=== PATIENT | male | born 1935 | race Caucasian/White ===

== ENCOUNTER 2017-02-19 16:42 | Inpatient (IN) | payer OTHER ==
[2017-02-19] VITALS (21 sets, daily range): BP systolic 98–264; BP diastolic 56–121
[~2017-02-19] VITALS: Ht 188 cm; Wt 124.6 kg
--- NOTE | ~2017-02-19 | HC ---
[facility] [place] [address] CONSULTATION Name: ART AVENDANO Room #: 241-P [facility] IN M.R.#: [id number] Admission: 02/19/17 Attend Phys: Juanjo Khan MD Discharge: 02/21/17 Date of : 33 Report #: [id number] THIS REPORT FOR: //name// CC: Juanoj Whitlock DATE OF SERVICE: 02/20/2017 REASON FOR CONSULTATION: Chronic kidney disease with acute worsening. HISTORY OF PRESENT ILLNESS: This is an 81-year-old male with a prior history of severe atherosclerotic cardiovascular disease. He is reported to have had a prior catheterization a number of years ago showing severe 3-vessel disease. The option at that time was for medical management. He had an out of hospital cardiac arrest while at home. He was resuscitated, intubated, admitted through the emergency room and is now in the ICU on hypothermia protocol. He has received multiple liters of IV fluids. He is on the vent with an FiO2 of 0.50. He is oxygenating well. He has been on some Levophed. The blood pressure is now up. He has had a bump in his troponin. He has been fully cooled. From a renal standpoint, the patient has a prior history of chronic kidney disease stage III. He has been followed in our office over the past couple of years by Dr. Barajas. He runs a baseline creatinine level in the 1.6 range. He has had very mild proteinuria. His renal parameters have been fairly stable over the past couple of years. Reviewing his hospital records, he has had 1.3 liters of urine since he came in. He has a Garner catheter in place. Urine is not bloody. He has had a bottle of total about 3.6 liters in. PAST MEDICAL HISTORY: Atherosclerotic coronary artery disease, hypertension, type 2 diabetes. He has had some hyperlipidemia. He has past history of some atrial flutter. He also has some dementia. He has hyperlipidemia, is on therapy for that. MEDICATIONS: On admission include amiodarone 200 mg daily, atorvastatin 20 mg daily, finasteride 5 mg daily, furosemide 40 mg daily, isosorbide mononitrate 30 mg daily, Lantus daily, NovoLog daily, although doses are unknown, levothyroxine 0.1 mg daily, metoprolol 25 mg b.i.d., Uroxatral 10 mg daily, Eliquis 5 mg b.i.d. and Namenda 14 mg daily. ALLERGIES: No known medical allergies. FAMILY HISTORY: Noncontributory in this 81-year-old male. SOCIAL HISTORY: The patient is and lives in [place], [place]. He is retired. [address] [place] [address] CONSULTATION Name: ART AVENDANO Room #: 241-P [facility] IN M.R.#: [id number] Admission: 02/19/17 Attend Phys: Juanjo Khan MD Discharge: 02/21/17 Date of : 34 Report #: [id number] REVIEW OF SYSTEMS: Unavailable at this time per reports from the emergency room and the admitting physician's aide. He had been up and about and quite active during the day yesterday, walking with a walker and apparently did little bit more exertion and normal. Not much else is available at this time. PHYSICAL EXAMINATION: GENERAL: Elderly appearing male seen in the Intensive Care Unit. VITAL SIGNS: Again, he is on hypothermia protocol with temperature of 33 degrees centigrade. Blood pressure is 160/88, heart rate is 56 in sinus, oxygen saturation 98%. HEENT: Shows pupils that are 3 mm and reactive. Sclerae are nonicteric. He is orally intubated. NECK: Supple. No JVD. CHEST: Shows somewhat coarse breath sounds bilaterally, but is symmetrical. HEART: Has a regular bradycardia. ABDOMEN: Has diminished bowel sounds. Abdomen is neither distended nor tender. I cannot palpate organomegaly or masses. EXTREMITIES: Show very cool extremities as one would expect with some mild associated cyanosis. He has absent pedal pulses. No peripheral edema. He is draining a small amount of urine into his Garner catheter. LABORATORY DATA: Most recent sodium 142, potassium 3.2, chloride 108, bicarbonate 21, BUN 35, creatinine 2.0, glucose 174, calcium 7.3, phosphorus 3.5, magnesium 1.8. Troponin 2.84. White count 4.7, hemoglobin 12.5, hematocrit 37.3, platelets 104,000. Differential on the white count, 78 neutrophils, 15 bands, 4 lymphs, 3 monos. Urinalysis, specific gravity 1.020, pH 5.0 with a negative dipstick. Blood gas most recently, pH 7.30, pCO2 of 32, pO2 of 113, lactate 2.59. I reviewed his chest x-ray which shows some oral intubation. Mild vascular congestion. ASSESSMENT: 1. Post-cardiac arrest. The patient is in the Intensive Care Unit on hypothermia protocol. Hemodynamically he is doing well. Blood pressure is actually on the side. We will be weaning the Levophed down. Volume status is fairly good and we will keep him on some maintenance IV fluids. He will continue on the hypothermia protocol. 2. Chronic kidney disease stage III with mild acute worsening. He has actually had good urine output. Baseline creatinine 1.6. It is up to 2.0 which would be about the expected range based upon his hemodynamic changes of out of an hospital arrest. We will follow closely on that. 3. Respiratory failure on the vent. Oxygenating adequately. 4. Atherosclerotic coronary artery disease, multivessel with previous decision not to do intervention. 5. Hypokalemia mild, replace IV. [facility] [address] [place] [address] CONSULTATION Name: ART AVENDANO Room #: 241-P [facility] IN ..#: [id number] Admission: 02/19/17 Attend Phys: Juanjo Khan MD Discharge: 02/21/17 Date of : 34 Report #: [id number] 6. Type 2 diabetes mellitus, sliding scale at this point. 7. History of dementia, although apparently is fairly functional and extensively ambulatory yesterday. PLAN: 1. Continue hypothermia protocol. 2. At this point, I will continue him on some half normal saline as maintenance IV fluids. He had been borderline hypernatremic, so we will keep him on the hypotonic fluids. Replace his potassium: 3. Follow urine output. 4. Follow up on his frequent lab draws. 5. Obviously decisions will need to be made on how he responds to his hypothermia protocol. <ELECTRONICALLY SIGNED> By: Braxton Connor MD 02/21/17 0749 0844 35 Braxton Connor MD /nt
--- NOTE | ~2017-02-19 | EKG ---
[address] [place] [address] ELECTROCARDIOGRAM REPORT Name: ART AVENDANO Room #: 241-P [facility] IN M.R.#: [id number] Admission: 02/19/17 Attend Phys: Juanjo Khan MD Discharge: 02/21/17 Date of : 34 Report #: [id number] THIS REPORT FOR: //name// [facility] ED Test Date: 2017-02-19 Test Time: 16:42:07 Pat Name: ART ACKERMANOLPH Department: Room: [facility] Gender: M Etl Bi Developer: RANJIT : 1935 Requested By: Armida Jane Order Number: [id number] MD: Sj Huffman Measurements Intervals [place] Rate: 50 P: WI: QRS: -90 QRSD: 182 T: 73 QT: 463 QTc: 423 Interpretive Statements Atrial fibrillation Right bundle branch block Abnormal T, consider ischemia, lateral leads No previous ECG available for comparison Electronically Signed On 02-20-2017 20:05:08 CDT by Sj Huffman [email or web address] <ELECTRONICALLY SIGNED> By: Sj Huffman MD 02/20/172004 41 41 Sj Huffman MD /KARIE
--- NOTE | ~2017-02-19 | EEG ---
[facility] [place] [address] ELECTROENCEPHALOGRAM Name: ART AVENDANO Ronel Room #: 241-P [facility] IN M.R.#: [id number] Admission: 02/19/17 Attend Phys: Juanjo Khan MD Discharge: 02/21/17 Date of : 34 Report #: [id number] THIS REPORT FOR: //name// CC: Juanjo Whitlock DATE OF SERVICE: 02/21/2017 This patient is being evaluated for jerking moment and she is post code. EEG was done by placing the electrodes by standard 10-20 system of electrode placement. Both referential and sequential montages were used for recording. Background activity is disorganized and poorly formed. It does go up to about 6-7 Hz, but most of the time stays lower than that. A lot of EKG artifact and muscle artifact is present and therefore, it is difficult to interpret this EEG and difficult to separate that artifact from spike and slow wave activity. However, spike and slow wave activity appeared to be present, which is separate from this artifact. Photic stimulation is unremarkable. There does not appear to be any specific focus for the spike and slow wave activity when it is present. IMPRESSION: This is a severely abnormal EEG because it does appear to be showing epileptiform activity, which does not have a specific focus and appeared to be present sporadically and diffusely. EEG is also slow which would be consistent with encephalopathy, but well defined cortical activity is present. Thank you very much for this referral. <ELECTRONICALLY SIGNED> By: Eren Coronado MD 02/25/17 1020 1719 1730 Eren Coronado MD /nt
--- NOTE | ~2017-02-19 | DEA ---
[facility] [place] [address] SUMMARY Name: ART AVENDANO Room #: 241-P [facility] IN M.R.#: [id number] Admission: 02/19/17 Attend Phys: Juanjo Khan MD Discharge: 02/21/17 Date of : 34 Report #: [id number] THIS REPORT FOR: //name// CC: Sj Khan Primary Care Physician Chinmay Marlow MD DATE OF SERVICE: 02/21/2017 DATE OF : 02/21/2017. BRIEF HISTORY OF PRESENT ILLNESS: This patient is an 81-year-old male brought in by EMS with a cardiac arrest. He was at home and went into collapse. He received ACLS protocol by the EMS. He was down for at least 30 minutes per report, brought into the emergency room. Then they started continued CPR, epinephrine again at least for 10-15 minutes in the ER. Basically, the patient was down at least more than 30-40 minutes and started on the pressors and further workup. The patient was admitted to the hospitalist service in the ICU. During this, they started the hypothermia protocol. The patient has a known history of coronary artery disease. Cardiology saw the patient. Pulmonary, cardiology and renal all have been on board. The patient has a known history of coronary artery disease, 3-vessel disease. He has opted not to go for CABG in the past. Basically, per cardiology, he has a poor prognosis because of a known history of 3-vessel disease and we did star on hypothermia, then after 24 hours protocol, started rewarming. The patient started having seizures. 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 Overall, the prognosis was very poor. All the consultants were there when seeing the patient and family by the bedside. I did have a long discussion with the family also and the family finally decided to basically go with comfort care and withdraw the care. Later on, I got a call. The patient was basically completely on comfort care now. Date of is 02/21/2017, as documented in the chart. Please see all the chart notes for further details. <ELECTRONICALLY SIGNED> By: Juanjo Khan MD 03/03/17 0924 1004 1027 Juanjo Khan MD /nt
--- NOTE | ~2017-02-19 | EKG ---
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
--- NOTE | ~2017-02-19 | EKG ---
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
--- NOTE | ~2017-02-19 | 2DMMODE ---
[place] [address] [facility] [place] [address] 2 D/M-MODE ECHOCARDIOGRAM Name: ART AVENDANO Room #: 241-P [facility] IN ..#: [id number] Admission: 02/19/17 Attend Phys: Erendira Muniz Discharge: 02/21/17 Date of : 34 Date of Service: 02/28/17 0850 Report #: [id number] THIS REPORT FOR: //name// ADDENDUM APPROVED REPORT Study performed: 02/19/2017 18:15:48 EXAM: Comprehensive 2D, Doppler, and color-flow Echocardiogram Patient Location: ER STAT Other Information Study Quality: Adequate Indications S^P Code. Echocardiogram was done STAT in the emergency room. Left Ventricle The left ventricle is normal size. Regional wall motion is not well visualized but grossly normal. Mild concentric left ventricular hypertrophy. The left ventricular systolic function is normal. The left ventricular ejection fraction is within the normal range. LVEF is 60-65%. Diastolic function was not assessed. Right Ventricle The right ventricle is normal size. The right ventricular systolic function is normal. Atria The left atrium size is normal. The right atrium size is normal. Aortic Valve Aortic valve is calcified. No Doppler Mitral Valve Mitral annular calcification No Doppler Tricuspid Valve Incompletely imaged There is no tricuspid valve regurgitation noted. Pulmonic Valve Pulmonic valve is not well visualized. [facility] [address] [place] [address] 2 D/M-MODE ECHOCARDIOGRAM Name: ART AVENDANO Room #: 241-P [facility] IN M.R.#: [id number] Admission: 02/19/17 Attend Phys: Erendira Muniz Discharge: 02/21/17 Date of : 34 Date of Service: 02/28/17 0850 Report #: [id number] Great Vessels IVC is not well visualized. Pericardium There is no pericardial effusion. <Conclusion> Very limited study. Almost uninterpretable The left ventricular systolic function is grossly normal. The left ventricular ejection fraction is probably within the normal range. Regional wall motion is not well visualized but grossly normal. Aortic valve is calcified. No Doppler Mitral annular calcification. No Doppler. Insufficiency probably absent There is no pericardial effusion. <ELECTRONICALLY SIGNED> By: Iggy Rodriguez MD, FACC 02/28/1750 9 Iggy Rodriguez MD, FACC /INF
--- NOTE | ~2017-02-19 | HC ---
[facility] [address] CONSULTATION Name: ART AVENDANO Room #: 241-P [facility] IN M.R.#: [id number] Admission: 02/19/17 Attend Phys: Juanjo Khan MD Discharge: 02/21/17 Date of : 34 Report #: [id number] THIS REPORT FOR: //name// CC: Juanjo Whitlock PRIMARY CARE PHYSICIAN: Unknown. REFERRAL PHYSICIAN: Dr. Khan. REASON FOR REFERRAL: Cardiac arrest. HISTORY OF PRESENT ILLNESS: The patient is an 81-year-old white male who was brought to the emergency room following an out of hospital cardiac arrest. A pulmonary and critical care consultation was requested. According to family, the patient was walking the stairs at home, he collapsed, fell. He sustained a laceration to back of scalp. 911 was called. When the EMS arrived, the patient was found to be in asystole. He was intubated on the field. He was shock for ventricular fibrillation. He was given epinephrine times 4. The patient was seen by cardiology in the emergency room. It is felt the patient did not have an acute myocardial infarction. Plans were to proceed with hypothermia protocol. Briefly ultrasound of the extremities were negative for DVT. Creatinine was 2. Echocardiogram was performed. Preliminary EF was said to be about 60%. Currently, he is sedated on undergoing hypothermia protocol. PAST MEDICAL HISTORY: Notable for coronary artery disease. He has been followed by Dr. Lammoglia. Cardiac catheterization was performed in the past showing 3-vessel disease. He has hypercholesterolemia, hypothyroidism, diabetes mellitus. PAST MEDICAL HISTORY: Otherwise incomplete. We will obtain old records. PAST SURGICAL HISTORY: Unknown. ALLERGIES: None to medications. MEDICATIONS: From home include amiodarone, Lipitor, Proscar, Lasix, isosorbide, Lantus, Synthroid, Lopressor, NovoLog, Eliquis, Namenda. FAMILY HISTORY: Noncontributory. [facility] [address] [place] [address] CONSULTATION Name: ART AVENDANO Room #: 241-P [facility] IN .R.#: [id number] Admission: 02/19/17 Attend Phys: Juanjo Khan MD Discharge: 02/21/17 Date of : 34 Report #: [id number] SOCIAL HISTORY: Unknown. REVIEW OF SYSTEMS: Deferred as the patient is intubated. PHYSICAL EXAMINATION: GENERAL: The patient is sedated. VITAL SIGNS: He is currently undergoing hypothermia protocol. Pulse is 54, respiratory rate is 20, blood pressure is 130/76 mmHg, saturation 100%. HEENT: Normocephalic, atraumatic. NECK: Supple, without any lymphadenopathy or thyromegaly. CHEST: Breath sounds are moderate, mild coarse breath sounds bilaterally. CARDIOVASCULAR: Normal S1, S2. There is no murmur or gallop. There is no JVD. There is no carotid bruit. Pulses are 2+/4+ bilaterally. ABDOMEN: No masses felt. Nontender. Abdomen is wrapped with the hypothermia protocol pads. GENITOURINARY AND RECTAL: Deferred. EXTREMITIES: Cool to touch. No cyanosis or clubbing. LABORATORY DATA: Portable chest x-ray shows vascular congestion, endotracheal tube is in good position, nasogastric tube is placed. Central line is noted. He has an appropriate position at the right atrium. CT head was unremarkable for any acute ischemic changes. A posterior occipital laceration is noted. C-spine is notable for extensive facet degeneration, otherwise no acute traumatic changes. Venous Doppler ultrasound was negative for DVT. Sodium 142, potassium 3.2, chloride 108, CO2 of 21, BUN is 35, creatinine is 2.0. Liver function profile is mildly elevated. Troponin is 3.0. Initial arterial blood gas revealed pH 7.19, pCO2 of 31, pO2 of 474. IMPRESSION: 1. Out of hospital cardiac arrest in this 81-year-old white male with history of coronary artery disease. Primary dysrhythmia is suspected. 2. Acute hypoxic respiratory failure due to above. 3. Acid base disorder. The patient has primary metabolic acidosis due to cardiac arrest. 4. Encephalopathy, possible hypoxic brain injury. We will need to reassess over the next 72 hours. 5. Renal insufficiency. Given his multi-comorbid conditions, I suspect that the patient may have chronic kidney disease though cannot rule out acute kidney injury due to cardiac arrest. 6. Metabolic acidosis due to above due to cardiac arrest. 7. Coronary artery disease with cardiac arrest now with elevated troponin as per cardiology. 8. Presumed history of atrial fibrillation, on amiodarone and anticoagulation. 9. Apparent history of dementia. RECOMMENDATIONS: We will continue mechanical ventilation for now. Complete [facility] [address] [place] [address] CONSULTATION Name: ART AVENDANO Room #: 241-P [facility] IN ..#: [id number] Admission: 02/19/17 Attend Phys: Juanjo Khan MD Discharge: 02/21/17 Date of : 34 Report #: [id number] hours of hypothermia protocol. Wean O2 for saturation 90%. DVT and GI prophylaxis will be addressed. Thank you for this consultation. <ELECTRONICALLY SIGNED> By: Javier Marlow MD 02/23/17 1351 1119 2056 Javier Marlow MD /nt
--- NOTE | ~2017-02-19 | HC ---
[facility] [place] [address] CONSULTATION Name: ART AVENDANO Room #: 241-P [facility] IN M.R.#: [id number] Admission: 02/19/17 Attend Phys: Juanjo Khan MD Discharge: 02/21/17 Date of : 33 Report #: [id number] THIS REPORT FOR: //name// CC: Juanjo Whitlock DATE OF SERVICE: 02/19/2017 HISTORY OF PRESENT ILLNESS: As you know, he is a gentleman who follows with Dr. Bloom. He has a known history of coronary artery disease with evidence of 3-vessel disease back in 2007. Catheterization was performed by Dr. Richardson at that time. At that time, there was also an echocardiogram that showed normal EF. Apparently at that time, a bypass surgery was recommended, but he decided against proceeding with this. He also has a history of atrial flutter, on amiodarone; hypertension; diabetes; chronic renal insufficiency and dementia. Apparently, the patient was in his usual state of health. His last visit with Dr. Bloom was in November, and at that time it sounds like he may have been in atrial flutter, and they decided to continue with a rate control strategy. Today, he was at a festival and was ambulating with his walker as usual. This was more activity for him than usual, but he did well. Apparently he got home, and the said that he went to go up in the garage, and a little time later, she heard a thud and found him slumped over the banister near their staircase. EMS was called and per their report, actually initially there was asystole followed by ventricular fibrillation, which was cardioverted, then he had PEA and then eventually pulse returned. REVIEW OF SYSTEMS: Unable to obtain. PAST MEDICAL HISTORY: As above. SOCIAL HISTORY: He does not smoke. FAMILY HISTORY: Noncontributory. MEDICATIONS: He is on: 1. Amiodarone 200 mg a day. 2. Atorvastatin 20 mg a day. 3. Finasteride 5 mg a day. 4. Lasix 40 mg a day. 5. Imdur 30 a day. 6. Lantus. 7. Synthroid. 8. Metoprolol 25 mg twice a day. 9. NovoLog. 10. Uroxatral. [address] [address] CONSULTATION Name: ART AVENDANO Room #: 241-P [facility] IN ..#: [id number] Admission: 02/19/17 Attend Phys: Juanjo Khan MD Discharge: 02/21/17 Date of : 33 Report #: [id number] 11. Eliquis 5 mg twice a day. 12. Namenda. ALLERGIES: None. PHYSICAL EXAMINATION: VITAL SIGNS: Have been reviewed. GENERAL: He is intubated and sedated. NECK: Supple. HEART: Irregularly irregular. There are no murmurs. LUNGS: Clear anteriorly. ABDOMEN: Soft, nontender and nondistended. EXTREMITIES: There are some chronic venous changes with some trace edema. NEUROLOGIC: Cranial nerves could not be assessed. LABORATORY DATA: A pH is 7.1, paCO2 of 31, pO2 of 474. Lactate 6.9. White count 9.1, hemoglobin 13.3 and platelets 146. Sodium 146, potassium 4.4, BUN 28 and creatinine 2.0. Troponin is 0.06. EKG shows atrial flutter, rate of 79 beats per minute with a widened QRS complex, right bundle branch block, left anterior fascicular block and some lateral ST changes. Chest x-ray shows some generalized cardiomegaly and some mild vascular congestion. CT of the head is pending. ASSESSMENT AND PLAN: In summary, the patient is a patient with known severe 3-vessel coronary artery disease as well as atrial flutter who had a witnessed cardiac arrest at home. It sounds like initially he was asystolic. He should be ruled out for the typical causes of asystole. I do not think that this is a primary arrhythmia abnormality. We discussed taking him to the general production laborer; however, he is currently on Eliquis. He has known severe 3-vessel disease and severe peripheral vascular disease. In 2007, they had difficulties even performing the cardiac catheterization. He is also currently on full dose anticoagulation. His EKG does not show any ST elevation [place] or any significant ischemia that he should really be taken for an emergency catheterization. As such, we will recommend supportive care with supporting his blood pressure and heart rate either with dopamine or additional vasopressor agents such as Levophed. We will continue to follow. <ELECTRONICALLY SIGNED> By: Sj Huffman MD 02/28/17 [id number] Sj Huffman MD /nt
[~2017-02-19 16:42] MED LIST: CALCIUM CARBON500 M3; ISOSORBIDE MONO30 M1 PO; LASIX 40 MG TAB40 M2 PO; LEVOTHYROXINE 0.1 MG PO; LIPITOR 10 MG10 M1; LIPITOR 20 MG T20 M1 PO; LOPRESSOR25 PO; MULTIVITAMINS1 EAC7 PO; NAMENDA 10 MG T10 MG PO; NAMENDA 5 MG TAB5 M1; OMEGA-31000 M1; PACERONE 200 M200 M1 PO; PACERONE100 MG; TOPROL XL25 MG; UROXATRAL PO
[2017-02-19 17:00] LABS: HEMATOCRIT 41.5 % (42.0-52.0); HEMOGLOBIN 13.3 gm/dL (14.0-18.0); MCH 31.5 pg (26.0-34.0); MCHC 32.1 g/dL (28.0-37.0); MCV 98.1 fL (80.0-100.0); PLATELET COUNT 146 thou/uL (150-400); RBC 4.23 mil/uL (4.50-6.00); RDW 16.5 % (10.5-14.5); WBC 9.1 thou/uL (4.0-11.0)
[2017-02-19 17:01] LABS: MANUAL DIFF YES
[2017-02-19 17:12] LABS: CALCIUM 8.8 mg/dL (8.5-10.1); POTASSIUM 4.4 mmol/L (3.5-5.1)
[2017-02-19 17:22] LABS: ABSOLUTE NEUTROPHILS 2.1 thou/uL (1.4-8.2); METAMYELOCYTES 1 %; TOTAL CELL COUNT 100; TROPONIN-I 0.06 ng/mL (<0.04-0.07)
[2017-02-19 17:23] LABS: ANISOCYTOSIS 1+
[2017-02-19 17:24] LABS: ABG SAMPLE TYPE ARTERIAL; BE(vivo) -15.1 mmol/L (-2 to +3); HCO3 11.9 mmol/L (22.0-26.0); O2(CT) 20.1 mL/dL (15.0-23.0); O2Hb 98.7 % (92.0-98.0); PCO2 31.7 mmHg (35.0-45.0); PO2 474.4 mmHg (80.0-100.0); sO2 99.8 % (92.0-98.0); tCO2 12.8 mmol/L (24.0-30.0)
[2017-02-19] MEDS ORDERED: PACERONE 200 M200 M1 PO (17:24)
[2017-02-19 17:25] LABS: LACTATE 6.99 mmol/L (0.5-2.0); STICK SITE R.BRACHIAL; TIDAL VOLUME 500 ml; pH 7.191 (7.360-7.450)
[2017-02-19] MEDS ORDERED: PROSCAR 5MG TABL5 MG PO (17:25)
[2017-02-19] MEDS ORDERED: FUROSEMIDE 40 M40 MG PO (17:25)
[2017-02-19] MEDS ORDERED: LIPITOR 20 MG T20 M1 PO (17:25)
[2017-02-19] MEDS ORDERED: ISOSORBIDE MONO30 M1 PO (17:25)
[2017-02-19] MEDS ORDERED: LANTUS100 UNIT/M SUBQ (17:26)
[2017-02-19] MEDS ORDERED: LEVOTHYROXINE 0.1 MG PO (17:27)
[2017-02-19] MEDS ORDERED: LOPRESSOR25 PO (17:27)
[2017-02-19] MEDS ORDERED: NOVOLOG100 UNIT/1 SUBQ (17:28)
[2017-02-19] MEDS ORDERED: UROXATRAL PO (17:28)
[2017-02-19] MEDS ORDERED: NAMENDA XR14 MG PO (17:29)
[2017-02-19] MEDS ORDERED: ELIQUIS5 MG PO (17:29)
[2017-02-19 17:59] LABS: URINE BILIRUBIN NEGATIVE (Negative); URINE BLOOD NEGATIVE (Negative); URINE COLOR YELLOW; URINE GLUCOSE-RANDOM* NEGATIVE (Negative); URINE KETONES NEGATIVE (Negative); URINE NITRITE NEGATIVE (Negative); URINE PROTEIN (DIPSTICK) NEGATIVE (Negative); URINE UROBILINOGEN 0.2 E.U./dl (0.2-1.0)
[2017-02-19 18:10] LABS: APTT 25.9 Seconds (24.5-32.8); INR 1.1; PROTIME 11.7 Seconds (9.3-11.4)
[2017-02-19 21:13] LABS: ABG SAMPLE TYPE ARTERIAL; BE(vivo) -7.3 mmol/L (-2 to +3); HCO3 18.4 mmol/L (22.0-26.0); O2(CT) 19.4 mL/dL (15.0-23.0); O2Hb 98.2 % (92.0-98.0); PCO2 37.8 mmHg (35.0-45.0); PO2 236.2 mmHg (80.0-100.0); STICK SITE R.BRACHIAL; pH 7.305 (7.360-7.450); sO2 99.5 % (92.0-98.0); tCO2 19.6 mmol/L (24.0-30.0)
[2017-02-19 21:14] LABS: TIDAL VOLUME 500 ml
[2017-02-19 22:56] LABS: FIBRINOGEN 325.2 mg/dL (210-360)
[2017-02-19 23:37] LABS: HEMATOCRIT 39.2 % (42.0-52.0); HEMOGLOBIN 12.8 gm/dL (14.0-18.0); MCH 30.7 pg (26.0-34.0); MCHC 32.8 g/dL (28.0-37.0); MCV 93.6 fL (80.0-100.0); PLATELET COUNT 157 thou/uL (150-400); RBC 4.18 mil/uL (4.50-6.00); RDW 15.8 % (10.5-14.5)
[2017-02-19 23:44] LABS: APTT 28.9 Seconds (24.5-32.8); INR 1.1; MANUAL DIFF YES; PROTIME 11.9 Seconds (9.3-11.4)
[2017-02-20] VITALS (98 sets, daily range): BP systolic 84–180; BP diastolic 49–110
[2017-02-20 00:04] LABS: ABSOLUTE NEUTROPHILS 12.3 thou/uL (1.4-8.2); CALCIUM 7.5 mg/dL (8.5-10.1); CK-MB MASS 54.2 ng/mL (<0.5-3.6); CREATININE 2.2 mg/dL (0.6-1.3); MAGNESIUM 1.8 mg/dL (1.8-2.4); POTASSIUM 4.4 mmol/L (3.5-5.1); TOTAL CELL COUNT 100
[2017-02-20 00:06] LABS: TROPONIN-I 3.01 ng/mL (<0.04-0.07)
[2017-02-20 02:44] LABS: ABG SAMPLE TYPE ARTERIAL; BE(vivo) -9.9 mmol/L (-2 to +3); HCO3 18.5 mmol/L (22.0-26.0); LACTATE 1.87 mmol/L (0.5-2.0); O2(CT) 17.6 mL/dL (15.0-23.0); O2Hb 88.7 % (92.0-98.0); PCO2 50.7 mmHg (35.0-45.0); PO2 66.5 mmHg (80.0-100.0); tCO2 20.1 mmol/L (24.0-30.0)
[2017-02-20 02:45] LABS: STICK SITE R.RADIAL; pH 7.181 (7.360-7.450)
[2017-02-20 02:46] LABS: TIDAL VOLUME 500 ml
[2017-02-20 04:31] LABS: HEMATOCRIT 37.3 % (42.0-52.0); HEMOGLOBIN 12.5 gm/dL (14.0-18.0); MCH 31.3 pg (26.0-34.0); MCHC 33.6 g/dL (28.0-37.0); MCV 93.2 fL (80.0-100.0); PLATELET COUNT 104 thou/uL (150-400); RBC 4.01 mil/uL (4.50-6.00); RDW 15.5 % (10.5-14.5); WBC 4.7 thou/uL (4.0-11.0)
[2017-02-20 04:35] LABS: MANUAL DIFF YES
[2017-02-20 04:53] LABS: APTT 30.9 Seconds (24.5-32.8); INR 1.2; PROTIME 12.2 Seconds (9.3-11.4)
[2017-02-20 04:59] LABS: CALCIUM 7.3 mg/dL (8.5-10.1); CK-MB MASS 78.9 ng/mL (<0.5-3.6); MAGNESIUM 1.8 mg/dL (1.8-2.4); PHOSPHORUS 3.5 mg/dL (2.5-4.9)
[2017-02-20 05:02] LABS: ABG SAMPLE TYPE ARTERIAL; BE(vivo) -7.9 mmol/L (-2 to +3); HCO3 17.6 mmol/L (22.0-26.0); LACTATE 2.59 mmol/L (0.5-2.0); O2(CT) 18.3 mL/dL (15.0-23.0); PCO2 36.4 mmHg (35.0-45.0); PO2 113.1 mmHg (80.0-100.0); sO2 97.8 % (92.0-98.0); tCO2 18.7 mmol/L (24.0-30.0)
[2017-02-20 05:03] LABS: STICK SITE R.RADIAL; TIDAL VOLUME 550 ml; pH 7.303 (7.360-7.450)
[2017-02-20 05:08] LABS: POTASSIUM 3.2 mmol/L (3.5-5.1)
[2017-02-20 05:09] LABS: TROPONIN-I 2.84 ng/mL (<0.04-0.07)
[2017-02-20 06:00] LABS: ABSOLUTE NEUTROPHILS 4.4 thou/uL (1.4-8.2); TOTAL CELL COUNT 100
[2017-02-20 12:04] LABS: HEMATOCRIT 37.7 % (42.0-52.0); HEMOGLOBIN 12.7 gm/dL (14.0-18.0); MCH 30.9 pg (26.0-34.0); MCHC 33.7 g/dL (28.0-37.0); MCV 91.8 fL (80.0-100.0); PLATELET COUNT 113 thou/uL (150-400); RBC 4.11 mil/uL (4.50-6.00); RDW 15.6 % (10.5-14.5)
[2017-02-20 12:06] LABS: MANUAL DIFF YES
[2017-02-20 12:21] LABS: CALCIUM 7.5 mg/dL (8.5-10.1); CREATININE 1.8 mg/dL (0.6-1.3); MAGNESIUM 1.8 mg/dL (1.8-2.4); PHOSPHORUS 2.7 mg/dL (2.5-4.9); POTASSIUM 3.3 mmol/L (3.5-5.1)
[2017-02-20 12:23] LABS: APTT 31.3 Seconds (24.5-32.8); INR 1.1; PROTIME 11.8 Seconds (9.3-11.4); TROPONIN-I 2.74 ng/mL (<0.04-0.07)
[2017-02-20 13:04] LABS: ABSOLUTE NEUTROPHILS 4.8 thou/uL (1.4-8.2); TOTAL CELL COUNT 100
[2017-02-20 16:30] LABS: HEMATOCRIT 36.5 % (42.0-52.0); HEMOGLOBIN 12.4 gm/dL (14.0-18.0); MANUAL DIFF YES; MCHC 33.9 g/dL (28.0-37.0); MCV 91.4 fL (80.0-100.0); PLATELET COUNT 104 thou/uL (150-400); RDW 15.7 % (10.5-14.5); WBC 4.1 thou/uL (4.0-11.0)
[2017-02-20 16:44] LABS: APTT 31.5 Seconds (24.5-32.8); INR 1.2; PROTIME 12.2 Seconds (9.3-11.4)
[2017-02-20 16:52] LABS: CALCIUM 7.5 mg/dL (8.5-10.1); CK-MB MASS 94.9 ng/mL (<0.5-3.6); CREATININE 1.7 mg/dL (0.6-1.3); MAGNESIUM 1.7 mg/dL (1.8-2.4); PHOSPHORUS 2.7 mg/dL (2.5-4.9); POTASSIUM 3.4 mmol/L (3.5-5.1)
[2017-02-20 16:55] LABS: TROPONIN-I 2.08 ng/mL (<0.04-0.07)
[2017-02-20 17:02] LABS: ABSOLUTE NEUTROPHILS 3.4 thou/uL (1.4-8.2); TOTAL CELL COUNT 100
[2017-02-20 20:23] LABS: ABG SAMPLE TYPE ARTERIAL; BE(vivo) -5.9 mmol/L (-2 to +3); HCO3 18.5 mmol/L (22.0-26.0); LACTATE 1.25 mmol/L (0.5-2.0); O2Hb 96.8 % (92.0-98.0); PCO2 32.9 mmHg (35.0-45.0); PO2 105.3 mmHg (80.0-100.0); pH 7.367 (7.360-7.450); sO2 97.7 % (92.0-98.0); tCO2 19.5 mmol/L (24.0-30.0)
[2017-02-20 20:25] LABS: STICK SITE RRA; TIDAL VOLUME 550 ml
[2017-02-20 20:26] LABS: ABG COMMENT AC20 550 +5 50%
[2017-02-21] VITALS (26 sets, daily range): BP systolic 94–157; BP diastolic 27–87
[2017-02-21 04:06] LABS: HEMATOCRIT 35.5 % (42.0-52.0); HEMOGLOBIN 12.3 gm/dL (14.0-18.0); MCH 31.8 pg (26.0-34.0); MCHC 34.7 g/dL (28.0-37.0); MCV 91.8 fL (80.0-100.0); RBC 3.86 mil/uL (4.50-6.00); RDW 15.6 % (10.5-14.5); WBC 5.9 thou/uL (4.0-11.0)
[2017-02-21 04:25] LABS: ALBUMIN 2.4 g/dL (3.4-5.0); CALCIUM 7.1 mg/dL (8.5-10.1); CREATININE 1.9 mg/dL (0.6-1.3); MAGNESIUM 1.4 mg/dL (1.8-2.4); POTASSIUM 4.1 mmol/L (3.5-5.1); TOTAL BILIRUBIN 0.8 mg/dL (<0.1-1.0); TOTAL PROTEIN 5.7 g/dL (6.4-8.2)
[2017-02-23 11:11] LABS: POC CA IONIZED 4.6 mg/dL (4.5-5.3); POC CREATININE 1.5 mg/dL (0.6-1.3); POC HEMOGLOBIN 13.6 g/dL (14.0-18.0); POC POTASSIUM 4.4 mmol/L (3.5-5.1)
== END 2017-02-21 15:35 | DRG 208 ==
LOC: ER 16:42 → ICU 17:50 → EROBS 17:50 → EDBD 17:50 → ICU 20:04
PROVIDERS: Emergency Medicine; Family Medicine; Internal Medicine; Internal Medicine Nephrology; Internal Medicine Pulmonary Disease
PROC: 0BH17EZ Insertion of Endotracheal Airway into Trachea, Via Natural or Artificial Opening (ICD-10-PCS; principal; 2017-02-19)
PROC: 5A1945Z Respiratory Ventilation, 24-96 Consecutive Hours (ICD-10-PCS; principal; 2017-02-19)
PROC: B5181ZA Fluoroscopy of Superior Vena Cava using Low Osmolar Contrast, Guidance (ICD-10-PCS; 2017-02-19)
PROC: 02HV33Z Insertion of Infusion Device into Superior Vena Cava, Percutaneous Approach (ICD-10-PCS; 2017-02-19)
DX: J96.01 Acute respiratory failure with hypoxia (principal); I21.4 Non-ST elevation (NSTEMI) myocardial infarction; G93.40 Encephalopathy, unspecified; N17.9 Acute kidney failure, unspecified; I48.92 Unspecified atrial flutter; E87.2 Acidosis; I42.9 Cardiomyopathy, unspecified; E87.0 Hyperosmolality and hypernatremia; I46.9 Cardiac arrest, cause unspecified; I25.10 Atherosclerotic heart disease of native coronary artery without angina pectoris; E11.22 Type 2 diabetes mellitus with diabetic chronic kidney disease; I12.9 Hypertensive chronic kidney disease with stage 1 through stage 4 chronic kidney disease, or unspecified chronic kidney disease; F03.90 Unspecified dementia, unspecified severity, without behavioral disturbance, psychotic disturbance, mood disturbance, and anxiety; E11.51 Type 2 diabetes mellitus with diabetic peripheral angiopathy without gangrene; E78.5 Hyperlipidemia, unspecified; E87.6 Hypokalemia; E03.9 Hypothyroidism, unspecified; E78.00 Pure hypercholesterolemia, unspecified; I48.91 Unspecified atrial fibrillation; E87.8 Other disorders of electrolyte and fluid balance, not elsewhere classified; T68.XXXA Hypothermia, initial encounter; R56.9 Unspecified convulsions; Z66 Do not resuscitate; Z51.5 Encounter for palliative care; Z23 Encounter for immunization; Z79.899 Other long term (current) drug therapy; N18.3 Chronic kidney disease, stage 3 (moderate)
CPT/HCPCS: 10078; 27000